=== PATIENT | female | born 1945 | race Caucasian/White ===

== ENCOUNTER 2025-01-12 15:03 | Emergency (ER) | payer MEDICARE ==
[~2025-01-12] VITALS: Ht 160 cm; Wt 48.0 kg
[2025-01-12 15:11] VITALS: TEMP 36.8; O2SAT 98
[2025-01-12 19:15] VITALS: BP 154/74; PULSE 97; RESP 15; O2SAT 98
== END 2025-01-12 19:18 | disposition home or self-care (01) ==
LOC: ER 15:03
DX: M79.7 Fibromyalgia (principal); F41.9 Anxiety disorder, unspecified; F32.A Depression, unspecified
CPT/HCPCS: 99281